=== PATIENT | male | born 1960 | race Caucasian/White ===

== ENCOUNTER 2022-04-14 19:48 | Emergency (ER) | payer MEDICAID ==
[~2022-04-14] VITALS: Ht 170.2 cm; Wt 64.2 kg
[~2022-04-14 19:48] MED LIST: BENZ2TAB7 MT; FLUO20CA39 MT; MIRT-89 MT; QUET200T MT
[2022-04-14 20:06] VITALS: BP 148/94
[2022-04-14] MEDS ORDERED: QUET200T MT (21:00)
[2022-04-14] MEDS ORDERED: BENZ2TAB7 MT (21:00)
[2022-04-14] MEDS ORDERED: MIRT-89 MT (21:00)
[2022-04-14] MEDS ORDERED: ACETAMINOPHEN 325MG TABLET PO ONE (21:00)
== END 2022-04-14 23:00 | disposition home or self-care (01) ==
LOC: ER 19:48
DX: M79.601 Pain in right arm (principal); M79.602 Pain in left arm; G89.29 Other chronic pain; Z76.0 Encounter for issue of repeat prescription; F10.229 Alcohol dependence with intoxication, unspecified; F31.9 Bipolar disorder, unspecified; F20.9 Schizophrenia, unspecified; Z79.899 Other long term (current) drug therapy; Y90.0 Blood alcohol level of less than 20 mg/100 ml
CPT/HCPCS: 99283

== ENCOUNTER 2022-05-17 18:39 | Emergency (ER) | payer MEDICAID, OTHER ==
[~2022-05-17] VITALS: Ht 172.7 cm; Wt 82.0 kg
[2022-05-17 19:35] VITALS: BP 150/95
== END 2022-05-17 20:01 | disposition home or self-care (01) ==
LOC: ER 18:39
DX: R56.9 Unspecified convulsions (principal); F10.10 Alcohol abuse, uncomplicated; F17.200 Nicotine dependence, unspecified, uncomplicated; F13.120 Sedative, hypnotic or anxiolytic abuse with intoxication, uncomplicated; Z79.899 Other long term (current) drug therapy; Y90.9 Presence of alcohol in blood, level not specified
CPT/HCPCS: 93005; 99283

== ENCOUNTER 2022-07-13 18:03 | Emergency (ER) | payer OTHER ==
[~2022-07-13] VITALS: Ht 170.2 cm; Wt 64.0 kg
[2022-07-13] MEDS ORDERED: ONDANSETRON HCL 4MG/2ML INJ IV STA (19:21)
[2022-07-13] MEDS ORDERED: MAGNESIUM 2 G PREMIX 50 ML IV ONE (19:30)
[2022-07-13] MEDS ORDERED: MIDAZOLAM HCL 2 MG/2 ML VIAL IV ONE ×2 (19:30→20:45)
[2022-07-13] MEDS ORDERED: SODIUM CHLORIDE 0.9% 1,000 ML IV ONE (19:30)
[2022-07-13 20:13] LABS: BG BASE EXCESS 0.2 mmol/L (-2.0-2.0); BG CARBOXYHEMOGLOBIN 0.9 % (0.5-1.5); BG DEOXYHEMOGLOBIN 2.7 % (0.0-5.0); BG FRACTION INSPIRED OXYGEN 21; BG HCO3 ACT 22.8 mmol/L (22.0-26.0); BG METHEMOGLOBIN 0.5 % (0.0-1.5); BG OXYGEN SATURATION 97.3 % (92.0-98.5); BG OXYHEMOGLOBIN 95.9 % (94.0-97.0); BG PCO2 31.8 mmHg (35.0-45.0); BG PH 7.474 (7.350-7.450); BG PO2 95.7 mmHg (75.0-100.0); BG SAMPLE SITE LEFT BRACHIAL; BG TOTAL HEMOGLOBIN 15.8 g/dL (12.0-18.0); BG VENT MODE ROOM AIR
[2022-07-13 21:57] LABS: EOSINOPHILS % 0.6 % (0.0-5.0); HEMATOCRIT. 44.2 % (42.0-52.0); HEMOGLOBIN. 15.3 g/dL (14.0-18.0); LYMPHOCYTES % 34.4 % (20.0-50.0); MEAN CORPUSCULAR HEMOGLOBIN 36.9 pg (28.0-32.0); MEAN CORPUSCULAR VOLUME 106.5 fL (80.0-94.0); MEAN PLATELET VOLUME 8.7 fl (7.4-10.4); MONOCYTES % 7.1 % (2.0-8.0); NEUTROPHILS % 56.9 % (40.0-76.0); PLATELET 81 x1000/uL (130-400); RED BLOOD CELL COUNT 4.15 mill/uL (4.7-6.1)
[2022-07-13 22:05] LABS: CHLORIDE 105 mEq/L (98-107)
[2022-07-13 22:21] LABS: ETHANOL BLOOD 468 mg/dL
[2022-07-14 00:10] LABS: CLARITY URINE CLEAR (CLEAR); COLOR URINE YELLOW (YELLOW); KETONES URINE NEGATIVE (NEGATIVE); LEUKOCYTE ESTERASE URINE NEGATIVE (NEGATIVE); NITRITE URINE NEGATIVE (NEGATIVE); OCCULT BLOOD URINE NEGATIVE (NEGATIVE); PROTEIN URINE NEGATIVE (NEGATIVE); SPECIFIC GRAVITY URINE 1.003 (1.005-1.030)
[2022-07-14 00:57] LABS: *AMPHETAMINES SCREEN URINE NEGATIVE (NEGATIVE); *BARBITURATES SCREEN URINE NEGATIVE (NEGATIVE); *BENZODIAZEPINES SCREEN URINE PRESUMTIVE POSITIVE (NEGATIVE); *COCAINE SCREEN URINE NEGATIVE (NEGATIVE); CANNABINOID URINE SCREEN NEGATIVE (NEGATIVE); METHADONE URINE SCREEN NEGATIVE (NEGATIVE); OPIATES URINE SCREEN NEGATIVE (NEGATIVE); PHENCYCLIDINE URINE SCREEN NEGATIVE (NEGATIVE)
[2022-07-14 03:30] VITALS: BP 101/66
== END 2022-07-14 04:00 | disposition short-term general hospital (02) ==
LOC: ER 18:03
DX: G93.40 Encephalopathy, unspecified (principal); T51.0X1A Toxic effect of ethanol, accidental (unintentional), initial encounter; Y92.89 Other specified places as the place of occurrence of the external cause; F31.9 Bipolar disorder, unspecified; F20.9 Schizophrenia, unspecified; Z79.899 Other long term (current) drug therapy
CPT/HCPCS: 36415; 36600; 70450; 71045; 80053; 80305; 80320; 81003; 82375; 82805; 83605; 83690; 84484; 85025; 87040; 93005; 96365; 96375; 96376; 99285; J2250; J2405; J3475; J7030; G0480

== ENCOUNTER 2023-06-15 12:02 | Emergency (ER) | payer OTHER ==
[~2023-06-15] VITALS: Ht 167.6 cm; Wt 73.0 kg
[~2023-06-15 12:02] MED LIST changes: +BENZ2TAB65 MT; -BENZ2TAB7 MT
[2023-06-15 12:11] VITALS: O2SAT 98
[2023-06-15] MEDS ORDERED: LEVETIRACETAM 1000MG PREMIX 100 ML IV ONE (13:15)
[2023-06-15] MEDS ORDERED: SODIUM CHLORIDE 0.9% 1,000 ML IV ONE (13:15)
[2023-06-15 13:21] LABS: BASOPHILS % 1.9 % (0.0-2.0); DIFFERENTIAL COMMENT 0; EOSINOPHILS % 0.7 % (0.0-5.0); HEMATOCRIT. 41.6 % (42.0-52.0); HEMOGLOBIN. 14.1 g/dL (14.0-18.0); LYMPHOCYTES % 38.4 % (20.0-50.0); MEAN CORPUSCULAR HEMOGLOBIN 34.3 pg (28.0-32.0); MEAN CORPUSCULAR HGB CONC 33.8 g/dL (31.0-37.0); MEAN CORPUSCULAR VOLUME 101.6 fL (80.0-94.0); MONOCYTES % 9.5 % (2.0-8.0); NEUTROPHILS % 49.5 % (40.0-76.0); PLATELET 187 x1000/uL (130-400); RED BLOOD CELL COUNT 4.09 mill/uL (4.7-6.1); RED CELL DISTRIBUTION WIDTH 14.1 % (11.6-14.6); WHITE BLOOD COUNT 4.3 x1000/uL (4.5-11.0)
[2023-06-15 13:28] LABS: CHLORIDE 105 mEq/L (98-107); INDEX HEMOLYSI 1 (1-3); INDEX ICTERIC 1 (1-4); INDEX LIPEMIC 1 (1-3); POTASSIUM 3.3 mEq/L (3.5-5.1); SODIUM 141 mEq/L (136-145)
[2023-06-15 13:38] LABS: ALANINE AMINOTRANSFERASE 38 IU/L (13-61); ALBUMIN 3.6 g/dL (3.4-5.0); ASPARTATE AMINOTRANSFERASE 58 IU/L (15-37); BILIRUBIN TOTAL 0.3 mg/dL (0.1-1.0); CALCIUM 8.3 mg/dL (8.5-10.1); CARBON DIOXIDE 27 mEq/L (21-32); CREATINE KINASE 141 IU/L (39-308); CREATININE 0.7 mg/dL (0.6-1.3); PROTEIN TOTAL 7.3 g/dL (6.0-8.3); UREA NITROGEN BLOOD 7 mg/dL (7-21)
[2023-06-15 14:40] LABS: PHENYTOIN < 0.4 ug/mL (10-20)
[2023-06-15 14:50] LABS: ETHANOL BLOOD 510 mg/dL (-10)
[2023-06-15 15:18] LABS: GLUCOSE 107 mg/dL (70-105)
[2023-06-15] MEDS ORDERED: KEPP500 MT (19:57)
[2023-06-15] MEDS ORDERED: POTASSIUM CHLORIDE 20MEQ TABLET SR PO ONE (20:00)
[2023-06-15 20:39] VITALS: BP 125/70; PULSE 68; RESP 15; TEMP 98.4
== END 2023-06-15 20:40 | disposition home or self-care (01) ==
LOC: ER 12:11
DX: F10.229 Alcohol dependence with intoxication, unspecified (principal); R56.9 Unspecified convulsions; F31.9 Bipolar disorder, unspecified; F20.9 Schizophrenia, unspecified; Y90.0 Blood alcohol level of less than 20 mg/100 ml; Z79.899 Other long term (current) drug therapy
CPT/HCPCS: 80053; 80320; 82550; 80185; 80165; 85025; 36415; 70450; 93005; 96365; 96366; 99285; J1953; J7030; Z7610; G0480

== ENCOUNTER 2024-06-08 22:25 | Emergency (ER) | payer OTHER ==
[~2024-06-08] VITALS: Ht 167.6 cm; Wt 68.0 kg
[~2024-06-08 22:25] MED LIST changes: +FLUO-413 MT; -FLUO20CA39 MT; +KEPP500 MT
[2024-06-08 22:33] VITALS: O2SAT 99
[2024-06-08] MEDS: KETOROLAC 30MG/ML VIAL IV STA (23:55)
[2024-06-08] MEDS: MAGNESIUM 2 G PREMIX 50 ML IV ONE (23:55)
[2024-06-08 23:58] LABS: CHLORIDE 99 mEq/L (98-107); POTASSIUM 3.7 mEq/L (3.5-5.1); SODIUM 138 mEq/L (136-145)
[2024-06-08 23:59] LABS: CALCIUM 8.8 mg/dL (8.7-10.4); CARBON DIOXIDE 31 mEq/L (21-32)
[2024-06-09] LABS: BASOPHILS % 1.6 % (0.0-2.0); EOSINOPHILS % 1.2 % (0.0-5.0); HEMATOCRIT. 40.1 % (42.0-52.0); HEMOGLOBIN. 13.3 g/dL (14.0-18.0); LYMPHOCYTES % 54.1 % (20.0-50.0); MEAN CORPUSCULAR HEMOGLOBIN 32.9 pg (28.0-32.0); MEAN CORPUSCULAR HGB CONC 33.3 g/dL (31.0-37.0); MEAN CORPUSCULAR VOLUME 98.9 fL (80.0-94.0); MEAN PLATELET VOLUME 8.1 fl (7.4-10.4); MONOCYTES % 5.1 % (2.0-8.0); PLATELET 216 x1000/uL (130-400); RED BLOOD CELL COUNT 4.05 mill/uL (4.7-6.1); RED CELL DISTRIBUTION WIDTH 15.3 % (11.6-14.6); WHITE BLOOD COUNT 6.2 x1000/uL (4.5-11.0)
[2024-06-09 00:03] LABS: CREATININE 1.1 mg/dL (0.6-1.3)
[2024-06-09 00:04] LABS: GLUCOSE 88 mg/dL (70-105); UREA NITROGEN BLOOD 11 mg/dL (9-23)
[2024-06-09 00:06] LABS: BG BASE EXCESS 0.2 mmol/L (-2.0-3.0); BG CARBOXYHEMOGLOBIN 0.2 % (0.5-1.5); BG DEOXYHEMOGLOBIN 8.7 % (0.0-5.0); BG FRACTION INSPIRED OXYGEN 21; BG HCO3 ACT 25.4 mmol/L (21.0-28.0); BG METHEMOGLOBIN 0.3 % (0.5-1.5); BG OXYGEN SATURATION 91.3 % (94.0-98.0); BG OXYHEMOGLOBIN 90.8 % (94.0-98.0); BG PH 7.389 (7.350-7.450); BG PO2 69.2 mmHg (83.0-108.0); BG SAMPLE SITE RIGHT RADIAL; BG TOTAL HEMOGLOBIN 14.3 g/dL (13.5-17.5); BG VENT MODE ROOM AIR
[2024-06-09 00:06] LABS: CREATINE KINASE 137 IU/L (46-171)
[2024-06-09 00:39] LABS: ETHANOL BLOOD 442 mg/dL (<10)
[2024-06-09] MEDS: FOLIC ACID 1 MG, THIAMINE HCL 100 MG, MVI, ADULT NO.1 10 ML in DEXTROSE 5% WATER 1,000 ML IV ONE (01:39)
[2024-06-09] MEDS ORDERED: CLONIDINE 0.1MG TABLET PO PRN (02:45)
[2024-06-09] MEDS ORDERED: DOCUSATE SODIUM 100MG CAPSULE PO PRN (02:45)
[2024-06-09] MEDS ORDERED: HYDROCODONE/ACETAMINOPHEN 5/325MG TABLET PO PRN (02:45)
[2024-06-09] MEDS ORDERED: ACETAMINOPHEN 325MG TABLET PO PRN (02:45)
[2024-06-09] MEDS ORDERED: POTASSIUM CHLORIDE 20MEQ TABLET SR PO PRN (02:45)
[2024-06-09] MEDS ORDERED: ONDANSETRON HCL 4MG/2ML INJ IV PRN (02:45)
[2024-06-09] MEDS ORDERED: MVI, ADULT NO.1 10 ML, FOLIC ACID 1 MG, THIAMINE HCL 100 MG in SODIUM CHLORIDE 0.9% 1,0... IV ONE (02:45)
[2024-06-09] MEDS ORDERED: MAGNESIUM/ALUMINUM HYDROXIDE/SIMETHICONE 30ML UDC PO PRN (02:45)
[2024-06-09] MEDS ORDERED: NALOXONE HCL 0.4MG/ML VIAL IV PRN (03:00)
[2024-06-09 04:17] VITALS: BP 112/78; PULSE 82; RESP 17; TEMP 36.61404; O2SAT 92
[2024-06-09] MEDS ORDERED: CHLORDIAZEPOXIDE 25MG CAPSULE PO SCH (06:00)
[2024-06-09] MEDS ORDERED: OMEPRAZOLE 20MG CAPSULE EXTENDED RELEASE PO SCH (07:50)
[2024-06-09] MEDS ORDERED: PANTOPRAZOLE 40MG DR TABLET PO SCH (07:50)
[2024-06-09] MEDS ORDERED: ENOXAPARIN 40MG/0.4ML SYR SUBCUT SCH (09:00)
== END 2024-06-09 04:56 | disposition short-term general hospital (02) ==
LOC: ER 22:25 → EDBEDREQDT 06-09 02:21 → EDBEDREQTM 06-09 02:21 → EDBEDREQ 06-09 02:21 → ER 06-09 04:56
DX: R07.81 Pleurodynia (principal); S50.311A Abrasion of right elbow, initial encounter; F31.9 Bipolar disorder, unspecified; R51.9 Headache, unspecified; Z86.59 Personal history of other mental and behavioral disorders; Z79.899 Other long term (current) drug therapy; W18.30XA Fall on same level, unspecified, initial encounter; Y93.89 Activity, other specified; Y92.89 Other specified places as the place of occurrence of the external cause; Y99.8 Other external cause status
CPT/HCPCS: 80048; 80320; 82550; 83605; 83735; 85025; 36415; 71101; 73070; 70450; 93005; 96365; 96366; 96375; 99285; 82805; 82375; 36600; J3490 ×2; J1885; J3475; J3411; J7070; Z7610; 96367; G0480

== ENCOUNTER 2024-07-04 17:00 | Emergency (ER) | payer OTHER ==
[~2024-07-04] VITALS: Ht 167.6 cm; Wt 77.0 kg
[2024-07-04] MEDS ORDERED: clonidine (17:06)
[2024-07-04 17:07] VITALS: O2SAT 97
[2024-07-04] MEDS ORDERED: ACETAMINOPHEN 500MG TABLET PO ONE (17:15)
[2024-07-04 18:34] LABS: HEMATOCRIT 40.4 % (42.0-52.0); HEMOGLOBIN 13.7 g/dL (14.0-18.0); MEAN CORPUSCULAR HEMOGLOBIN 33.5 pg (28.0-32.0); MEAN CORPUSCULAR HGB CONC 33.8 g/dL (31.0-37.0); MEAN CORPUSCULAR VOLUME 99.2 fL (80.0-94.0); PLATELET 129 x1000/uL (130-400); RED BLOOD CELL COUNT 4.07 mill/uL (4.7-6.1); RED CELL DISTRIBUTION WIDTH 15.1 % (11.6-14.6); WHITE BLOOD COUNT 7.9 x1000/uL (4.5-11.0)
[2024-07-04 18:36] LABS: CHLORIDE 106 mEq/L (98-107); POTASSIUM 3.3 mEq/L (3.5-5.1); SODIUM 141 mEq/L (136-145)
[2024-07-04 18:37] LABS: CALCIUM 9.4 mg/dL (8.7-10.4); CARBON DIOXIDE 27 mEq/L (21-32)
[2024-07-04 18:42] LABS: GLUCOSE 91 mg/dL (70-105); UREA NITROGEN BLOOD 9 mg/dL (9-23)
[2024-07-04 18:43] LABS: CREATININE 1.5 mg/dL (0.6-1.3); TROPONIN I HIGH SENSITIVITY 16 ng/L (3.0-53)
[2024-07-04] MEDS: KETOROLAC 30MG/ML VIAL IV NR (19:00)
[2024-07-04] MEDS: ACETAMINOPHEN 500MG TABLET PO NR (19:12)
[2024-07-04] MEDS: SODIUM CHLORIDE 0.9% 1,000 ML IV NR (21:21)
[2024-07-04 22:33] VITALS: BP 91/57; PULSE 56; RESP 12; TEMP 36.44736; O2SAT 100
== END 2024-07-04 22:46 | disposition short-term general hospital (02) ==
LOC: ER 17:00
DX: S22.42XA Multiple fractures of ribs, left side, initial encounter for closed fracture (principal); F31.9 Bipolar disorder, unspecified; F20.9 Schizophrenia, unspecified; F10.129 Alcohol abuse with intoxication, unspecified; Z79.899 Other long term (current) drug therapy; X58.XXXA Exposure to other specified factors, initial encounter; Y93.89 Activity, other specified; Y92.89 Other specified places as the place of occurrence of the external cause; Y99.8 Other external cause status; Y90.9 Presence of alcohol in blood, level not specified
CPT/HCPCS: 80048; 80320; 85027; 84484; 36415; 71101; 96361; 96374; 99285; J1885; Z7610 ×3; G0480

== ENCOUNTER 2024-07-20 10:16 | Emergency (ER) | payer OTHER ==
[~2024-07-20] VITALS: Ht 167.6 cm; Wt 66.0 kg
[~2024-07-20 10:16] MED LIST changes: +clonidine
[2024-07-20 10:19] VITALS: O2SAT 98
[2024-07-20 10:42] VITALS: BP 134/79; PULSE 67; RESP 14; TEMP 37.05852; O2SAT 99
[2024-07-20] MEDS: SODIUM CHLORIDE 0.9% 1,000 ML IV ONE (11:18)
[2024-07-20] MEDS: LORAZEPAM 2MG/ML INJ IV ONE (11:18)
[2024-07-20 11:39] LABS: DIFFERENTIAL COMMENT 0; HEMATOCRIT. 42.6 % (42.0-52.0); HEMOGLOBIN. 14.3 g/dL (14.0-18.0); LYMPHOCYTES % 48.4 % (20.0-50.0); MEAN CORPUSCULAR HEMOGLOBIN 33.9 pg (28.0-32.0); MEAN CORPUSCULAR HGB CONC 33.7 g/dL (31.0-37.0); MEAN CORPUSCULAR VOLUME 100.9 fL (80.0-94.0); MEAN PLATELET VOLUME 7.9 fl (7.4-10.4); MONOCYTES % 7.2 % (2.0-8.0); NEUTROPHILS % 39.4 % (40.0-76.0); PLATELET 165 x1000/uL (130-400); RED BLOOD CELL COUNT 4.22 mill/uL (4.7-6.1); RED CELL DISTRIBUTION WIDTH 14.9 % (11.6-14.6); WHITE BLOOD COUNT 3.9 x1000/uL (4.5-11.0)
[2024-07-20 11:46] LABS: CHLORIDE 105 mEq/L (98-107); POTASSIUM 3.5 mEq/L (3.5-5.1); SODIUM 140 mEq/L (136-145)
[2024-07-20 11:47] LABS: CALCIUM 9.1 mg/dL (8.7-10.4); CARBON DIOXIDE 28 mEq/L (21-32)
[2024-07-20 11:52] LABS: GLUCOSE 89 mg/dL (70-105); UREA NITROGEN BLOOD 7 mg/dL (9-23)
[2024-07-20 12:01] LABS: ETHANOL BLOOD 379 mg/dL (<10)
[2024-07-20] MEDS ORDERED: L10 MT (14:02)
== END 2024-07-20 16:37 | disposition home or self-care (01) ==
LOC: ER 10:42
DX: F10.20 Alcohol dependence, uncomplicated (principal); F31.9 Bipolar disorder, unspecified; F20.9 Schizophrenia, unspecified; Z79.899 Other long term (current) drug therapy; Y90.8 Blood alcohol level of 240 mg/100 ml or more
CPT/HCPCS: 80048; 80320; 85025; 36415; 96361; 96374; 99283; J2060; J7030; G0480

== ENCOUNTER 2025-02-04 17:49 | Emergency (ER) | payer MEDICARE, MEDICAID ==
[~2025-02-04] VITALS: Ht 167.6 cm; Wt 66.0 kg
[~2025-02-04 17:49] MED LIST changes: -BENZ2TAB65 MT; -FLUO-413 MT; -KEPP500 MT; +KEPPSOL PO; -MIRT-89 MT; -QUET200T MT; +THIA50TA12 MT; -clonidine
[2025-02-04 17:50] VITALS: O2SAT 98
[2025-02-04] MEDS: SODIUM CHLORIDE 0.9% 1,000 ML IV ONE (18:35)
[2025-02-04] MEDS: LEVETIRACETAM 1000MG PREMIX 100 ML IV ONE (18:35)
[2025-02-04 18:41] LABS: BASOPHILS % 0.8 % (0.0-2.0); DIFFERENTIAL COMMENT 0; EOSINOPHILS % 0.8 % (0.0-5.0); HEMATOCRIT. 39.5 % (42.0-52.0); HEMOGLOBIN. 13.5 g/dL (14.0-18.0); LYMPHOCYTES % 31.4 % (20.0-50.0); MEAN CORPUSCULAR HEMOGLOBIN 34.6 pg (28.0-32.0); MEAN CORPUSCULAR HGB CONC 34.3 g/dL (31.0-37.0); MEAN CORPUSCULAR VOLUME 100.8 fL (80.0-94.0); MEAN PLATELET VOLUME 7.9 fl (7.4-10.4); MONOCYTES % 4.9 % (2.0-8.0); NEUTROPHILS % 62.1 % (40.0-76.0); PLATELET 135 x1000/uL (130-400); RED BLOOD CELL COUNT 3.92 mill/uL (4.7-6.1); WHITE BLOOD COUNT 5.8 x1000/uL (4.5-11.0)
[2025-02-04 18:49] LABS: CHLORIDE 97 mEq/L (98-107); POTASSIUM 3.5 mEq/L (3.5-5.1); SODIUM 137 mEq/L (136-145)
[2025-02-04 18:50] LABS: CALCIUM 8.5 mg/dL (8.7-10.4); CARBON DIOXIDE 27 mEq/L (21-32)
[2025-02-04 18:55] LABS: CREATININE 0.9 mg/dL (0.6-1.3); GLUCOSE 91 mg/dL (70-105); UREA NITROGEN BLOOD 10 mg/dL (9-23)
[2025-02-04 18:56] LABS: ETHANOL BLOOD 300 mg/dL (<10)
[2025-02-04 18:57] LABS: ALANINE AMINOTRANSFERASE 42 IU/L (10-49); ASPARTATE AMINOTRANSFERASE 74 IU/L (<34); BILIRUBIN DIRECT 0.1 mg/dL (<=3.0); BILIRUBIN TOTAL 0.4 mg/dL (0.1-1.0); PROTEIN TOTAL 7.1 g/dL (6.0-8.3)
[2025-02-04 19:12] LABS: *AMPHETAMINES SCREEN URINE NEGATIVE (NEGATIVE); *BARBITURATES SCREEN URINE NEGATIVE (NEGATIVE); *BENZODIAZEPINES SCREEN URINE PRESUMPTIVE POSITIVE (NEGATIVE); *COCAINE SCREEN URINE NEGATIVE (NEGATIVE); CANNABINOID URINE SCREEN NEGATIVE (NEGATIVE); ECSTASY MDMA SCREEN URINE NEGATIVE (NEGATIVE); METHADONE URINE SCREEN NEGATIVE (NEGATIVE); OPIATES URINE SCREEN NEGATIVE (NEGATIVE); PHENCYCLIDINE URINE SCREEN NEGATIVE (NEGATIVE)
[2025-02-04 22:13] VITALS: BP 110/66; PULSE 76; RESP 16; TEMP 37; O2SAT 95
== END 2025-02-04 22:47 ==
LOC: ER 17:49
DX: F10.10 Alcohol abuse, uncomplicated (principal); F31.9 Bipolar disorder, unspecified; Z91.148 Patient's other noncompliance with medication regimen for other reason; Z86.59 Personal history of other mental and behavioral disorders; Y90.8 Blood alcohol level of 240 mg/100 ml or more
CPT/HCPCS: 80076; 80305; 80048; 80320; 85025; 36415; 70450; 96365; 96366; 99285; J1953; J7030; A4606; G0480